=== PATIENT | male | born 1990 | race African-American/Black ===

== ENCOUNTER 2021-12-29 06:14 | Day surgery (SDCO) | payer OTHER ==
[~2021-12-29] VITALS: Ht 188 cm; Wt 187.3 kg
[~2021-12-29 06:14] MED LIST: CHLORTHALIDONE50 MG PO; DULOXETINE HCL30 MG PO; GABAPENTIN600 MG PO; LISINOPRIL40 MG PO; METFORMIN HCL1000 MG PO; METOPROLOL SUCC50 MG PO; PERCOCET 7.5/321 TAB PO; VITAMIN D350 MC3 PO
[2021-12-29 07:00] LABS: HCT 46.1 % (42.0-52.0); HGB 15.8 g/dl (13.2-18.0); MCH 29.6 pg (25.0-31.0); MCHC 34.3 g/dL (32.0-36.0); MCV 86.3 fL (78.0-100.0); MPV 9.9 fL (6.0-9.5); RBC 5.34 M/uL (4.70-6.00); RDW 12.1 % (11.5-14.0)
[2021-12-29 07:28] LABS: ALBUMIN 3.7 g/dL (3.4-5.0); BILIRUBIN - TOTAL 0.6 mg/dL (0.2-1.0); BUN/CREAT RATIO (CALC) 21.3 RATIO; CREATININE 0.61 mg/dL (0.67-1.17); GLOBULIN (CALCULATION) 3.4 g/dL; POTASSIUM 3.3 mmol/L (3.5-5.1); TOTAL PROTEIN 7.1 g/dL (6.4-8.2)
[2021-12-30 06:41] LABS: BASOPHIL 0.4 % (0-2); EOSINOPHIL 0.4 % (0-5); HCT 43.2 % (42.0-52.0); HGB 14.5 g/dl (13.2-18.0); LYMPHOCYTE 23.3 % (15-48); MCH 29.5 pg (25.0-31.0); MCHC 33.6 g/dL (32.0-36.0); MONOCYTE 8.9 % (0-12); MPV 9.9 fL (6.0-9.5); NEUTROPHIL 66.7 % (41-80); NRBC 0; PLT 315 K/uL (150-400); RBC 4.91 M/uL (4.70-6.00); RDW 12.3 % (11.5-14.0); WBC 11.9 K/uL (4.0-10.5)
[2021-12-30 07:06] LABS: ALBUMIN 3.6 g/dL (3.4-5.0); BILIRUBIN - TOTAL 0.9 mg/dL (0.2-1.0); BUN/CREAT RATIO (CALC) 18.8 RATIO; CREATININE 0.69 mg/dL (0.67-1.17); GLOBULIN (CALCULATION) 3.4 g/dL; POTASSIUM 3.3 mmol/L (3.5-5.1)
[2021-12-31 06:03] LABS: BASOPHIL 0.7 % (0-2); EOSINOPHIL 1.2 % (0-5); HCT 42.3 % (42.0-52.0); HGB 13.9 g/dl (13.2-18.0); LYMPHOCYTE 24.3 % (15-48); MCH 29.6 pg (25.0-31.0); MCHC 32.9 g/dL (32.0-36.0); MONOCYTE 10.2 % (0-12); MPV 9.7 fL (6.0-9.5); NEUTROPHIL 62.7 % (41-80); NRBC 0; PLT 272 K/uL (150-400); RDW 12.3 % (11.5-14.0); WBC 10.4 K/uL (4.0-10.5)
[2021-12-31 06:17] LABS: ALBUMIN 3.5 g/dL (3.4-5.0); BILIRUBIN - TOTAL 1.1 mg/dL (0.2-1.0); BUN/CREAT RATIO (CALC) 12.7 RATIO; CREATININE 0.79 mg/dL (0.67-1.17); GLOBULIN (CALCULATION) 3.3 g/dL; POTASSIUM 3.8 mmol/L (3.5-5.1); TOTAL PROTEIN 6.8 g/dL (6.4-8.2)
[2021-12-31] MEDS ORDERED: K-TAB ER20 MEQ PO (13:59)
--- NOTE | 2021-12-31 15:28 | NUR ---
12/31 Mr. Lima lives with his grandparents. He is wc bound due to spinal stenosis. He also has a 3in1, rw, ramp, and s. chair. He is independent with transfers. Mr. Lima reports to be supported by his mother. He has not worked enough quarters to be eligible for SSD and was denied SSI 6 years ago. - Mr. Lima was advised to re-apply for SSI. He was also educated to [facility].
== END 2021-12-31 16:30 | disposition home or self-care (01) ==
LOC: FAS 06:14 → FMS 06:14 → FAS 07:30 → FMS 10:59 → FAS 12-30 01:47 → FMS 12-31 16:30
PROVIDERS: Student in an Organized Health Care Education/Training Program; ADMIT Internal Medicine
DX: K80.10 Calculus of gallbladder with chronic cholecystitis without obstruction (principal); E66.01 Morbid (severe) obesity due to excess calories; K76.0 Fatty (change of) liver, not elsewhere classified; K66.0 Peritoneal adhesions (postprocedural) (postinfection); I10 Essential (primary) hypertension; E87.6 Hypokalemia; M48.00 Spinal stenosis, site unspecified; E11.9 Type 2 diabetes mellitus without complications; Z87.891 Personal history of nicotine dependence; Z99.3 Dependence on wheelchair
CPT/HCPCS: 36415; 74181; 80053; 82150; 83690; 85025; 93005; G0378; J1100; J1335; J1644; J1885; J2250; J2405; J2704; J3010; J7120; Q9967